=== PATIENT | male | born 1935 | race Hispanic/Latino ===

== ENCOUNTER → 2023-04-25 | Outpatient (CLI) | payer OTHER ==
[~2023-04-25] MED LIST: FENO145T26 PO; FOLI1TAB15 PO; GABA-529 PO; GLIP10TA9 PO; IRON PO; LEVO500T2 PO; LISI10TA24 PO; ONDA8TAB5 PO; PANT40TA55 PO; SIMV40TA59 PO; TRAZ-185 PO; TYL3 PO
== END | disposition home or self-care (01) ==
LOC: OIH 13:27
PROVIDERS: ATTEND Internal Medicine
DX: C16.9 Malignant neoplasm of stomach, unspecified (principal); R11.10 Vomiting, unspecified; M47.815 Spondylosis without myelopathy or radiculopathy, thoracolumbar region; R10.10 Upper abdominal pain, unspecified; Z85.028 Personal history of other malignant neoplasm of stomach; Z90.49 Acquired absence of other specified parts of digestive tract
CPT/HCPCS: 71046; 74021